=== PATIENT | female | born 1995 | race Two or more races ===

== ENCOUNTER 2022-02-19 10:52 | Emergency (ER) | payer MEDICAID ==
[~2022-02-19] VITALS: Ht 162.6 cm; Wt 84.1 kg
[~2022-02-19 10:52] MED LIST: PREN-125 PO
[2022-02-19] MEDS ORDERED: SODIUM CHLORIDE 0.9% 1,000 ML IVB ONE (11:30)
[2022-02-19] MEDS ORDERED: PROCHLORPERAZINE EDISYLATE 5 MG/ML 2ML VIAL IV ONE (11:30)
[2022-02-19 11:51] LABS: Basophils # (auto) 0 10 ^3/uL (0-0.2); Basophils % (auto) 0.4 % (0.0-2.0); Eosinophils # (auto) 0 10 ^3/uL (0-0.8); Eosinophils % (auto) 0.3 % (0.0-7.0); Hematocrit 41.6 % (36.0-46.0); Hemoglobin 13.9 g/dL (12.2-16.2); Lymphocytes # (auto) 1.8 10 ^3/uL (0.4-5.4); Lymphocytes % (auto) 19.5 % (10.0-50.0); Mean Corpuscular Hemoglobin 29.6 pg (28.0-32.0); Mean Corpuscular Hgb Conc. 33.5 g/dL (32.0-36.0); Mean Corpuscular Volume 88.4 fL (80.0-100.0); Monocytes # (auto) 0.9 10 ^3/uL (0-1.3); Monocytes % (auto) 9.5 % (0.0-12.0); Neutrophils # (auto) 6.5 10 ^3/uL (1.6-8.6); Neutrophils % (auto) 70.3 % (37.0-80.0); Red Blood Cells 4.71 10^6/uL (4.0-5.20); Red Cell Distribution Width 12.7 % (11.8-14.3); White Blood Cell 9.3 10^3/uL (4.4-10.8)
[2022-02-19 12:12] LABS: Albumin 4.1 g/dL (3.4-5.0); BUN/Creatinine Ratio 13.2; Calcium 9.3 mg/dL (8.5-10.1)
[2022-02-19 12:15] LABS: Bilirubin, Total 0.6 mg/dL (0.2-1.0); Total Protein 8.3 g/dL (6.4-8.2)
[2022-02-19 14:13] LABS: Urine Specific Gravity 1.004 (1.001-1.035)
[2022-02-19 14:14] LABS: Urine Blood Negative /uL (Negative)
[2022-02-19] MEDS ORDERED: ONDA-144 PO (14:20)
[2022-02-19 16:19] VITALS: BP 114/77
[2022-02-19 20:28] LABS: Urine Bacteria NONE SEEN /hpf (None Seen); Urine WBC NONE SEEN /hpf (0 - 5)
== END 2022-02-19 16:20 | disposition home or self-care (01) ==
LOC: ER 10:52
DX: B34.9 Viral infection, unspecified (principal); F12.188 Cannabis abuse with other cannabis-induced disorder; R42 Dizziness and giddiness; Z32.02 Encounter for pregnancy test, result negative
CPT/HCPCS: 36415; 80053; 81001; 81025; 85025; 96361; 96374; 99283; J0780; J7030

== ENCOUNTER 2022-09-25 14:01 | Emergency (ER) | payer MEDICAID ==
[~2022-09-25] VITALS: Ht 162.6 cm; Wt 72.3 kg
[~2022-09-25 14:01] MED LIST changes: +ONDA-144 PO
[2022-09-25 14:13] VITALS: BP 117/68
[2022-09-25] MEDS ORDERED: IBUPROFEN 600 MG TAB PO ONE (15:45)
[2022-09-25] MEDS ORDERED: IBUP1TAB5 PO (16:18)
== END 2022-09-25 16:25 | disposition home or self-care (01) ==
LOC: ER 14:01
DX: S46.911A Strain of unspecified muscle, fascia and tendon at shoulder and upper arm level, right arm, initial encounter (principal); F12.10 Cannabis abuse, uncomplicated; X50.0XXA Overexertion from strenuous movement or load, initial encounter; Y93.89 Activity, other specified; Y92.89 Other specified places as the place of occurrence of the external cause; Y99.8 Other external cause status
CPT/HCPCS: 73030

== ENCOUNTER 2022-11-02 22:34 | Emergency (ER) | payer SELFPAY ==
[~2022-11-02] VITALS: Ht 162.6 cm; Wt 69.5 kg
[~2022-11-02 22:34] MED LIST changes: +IBUP1TAB5 PO
[2022-11-03 00:25] VITALS: BP 97/47; PULSE 59; RESP 20; TEMP 97.6; O2SAT 97
[2022-11-03] MEDS ORDERED: DIPH25TA54 PO (00:28)
[2022-11-03] MEDS ORDERED: DOXY-286 PO (00:28)
[2022-11-03] MEDS ORDERED: PRED20TA2 PO (00:28)
[2022-11-03] MEDS ORDERED: diphenhdrAMINE HCL 25 MG CAP PO ONE (00:30)
[2022-11-03] MEDS ORDERED: DexAMETHasone SOD PHOS 10MG/1ML VIAL INJ IM ONE (00:30)
[2022-11-03] MEDS ORDERED: FAMOTIDINE 20 MG TAB PO ONE (00:30)
== END 2022-11-03 03:43 | disposition home or self-care (01) ==
LOC: ER 22:34
DX: S00.86XA Insect bite (nonvenomous) of other part of head, initial encounter (principal); F15.90 Other stimulant use, unspecified, uncomplicated; Z98.890 Other specified postprocedural states; Z79.1 Long term (current) use of non-steroidal anti-inflammatories (NSAID); Z79.899 Other long term (current) drug therapy; W57.XXXA Bitten or stung by nonvenomous insect and other nonvenomous arthropods, initial encounter; Y93.89 Activity, other specified; Y92.89 Other specified places as the place of occurrence of the external cause; Y99.8 Other external cause status
CPT/HCPCS: 96372; 99283; J1100

== ENCOUNTER 2023-04-19 13:32 | Emergency (ER) | payer SELFPAY ==
[~2023-04-19] VITALS: Ht 160 cm; Wt 70.9 kg
[~2023-04-19 13:32] MED LIST changes: +DIPH25TA54 PO; +DOXY-286 PO; +PRED20TA2 PO
[2023-04-19] MEDS ORDERED: KETOROLAC TROMETH 60MG/2ML VIAL IM ONE (15:00)
[2023-04-19 15:13] LABS: Urine Bacteria MANY /hpf (None Seen); Urine Blood Negative /uL (Negative); Urine Clarity HAZY (Clear); Urine Color Colorless (Yellow); Urine Protein, UAD TRACE (Negative); Urine Specific Gravity 1.008 (1.001-1.035); Urine Urobilinogen Normal (Negative); Urine WBC 6 /hpf (0 - 5); Urine pH 5.5 (5.0-8.0)
[2023-04-19 15:50] VITALS: BP 114/50; PULSE 60; RESP 17; TEMP 98.2; O2SAT 98
[2023-04-19] MEDS ORDERED: IBUP1TAB5 PO (16:20)
[2023-04-19] MEDS ORDERED: ACET500T58 PO (16:20)
== END 2023-04-19 16:27 | disposition home or self-care (01) ==
LOC: ER 13:32
DX: S16.1XXA Strain of muscle, fascia and tendon at neck level, initial encounter (principal); S39.012A Strain of muscle, fascia and tendon of lower back, initial encounter; S20.211A Contusion of right front wall of thorax, initial encounter; F15.90 Other stimulant use, unspecified, uncomplicated; Z98.890 Other specified postprocedural states; Z79.899 Other long term (current) drug therapy; V89.2XXA Person injured in unspecified motor-vehicle accident, traffic, initial encounter; Y93.89 Activity, other specified; Y92.89 Other specified places as the place of occurrence of the external cause; Y99.8 Other external cause status
CPT/HCPCS: 72040; 72100; 81001; 81025; 96372; 99284; J1885

== ENCOUNTER 2023-05-13 13:15 | Emergency (ER) | payer MEDICAID ==
[~2023-05-13 13:15] MED LIST changes: +ACET500T58 PO
[2023-05-13 14:35] VITALS: BP 109/42; PULSE 79; RESP 18; TEMP 98.1; O2SAT 99
[2023-05-13] MEDS ORDERED: MELO-335 PO (15:32)
[2023-05-13] MEDS ORDERED: CYCL-839 PO (15:32)
[2023-05-13] MEDS: KETOROLAC TROMETH 60MG/2ML VIAL IM ONE (15:47)
== END 2023-05-13 16:01 | disposition home or self-care (01) ==
LOC: ER 13:15
DX: S16.1XXA Strain of muscle, fascia and tendon at neck level, initial encounter (principal); F12.10 Cannabis abuse, uncomplicated; X58.XXXA Exposure to other specified factors, initial encounter; Y93.89 Activity, other specified; Y92.89 Other specified places as the place of occurrence of the external cause; Y99.8 Other external cause status
CPT/HCPCS: 96372; 99283; J1885

== ENCOUNTER 2024-04-18 18:47 | Emergency (ER) | payer MEDICAID ==
[~2024-04-18] VITALS: Ht 162.6 cm; Wt 72.8 kg
[~2024-04-18 18:47] MED LIST changes: +CYCL-839 PO; +MELO15TA29 PO
--- NOTE | 2024-04-18 18:59 | ED.PDOC ---
History of Present Illness HPI Comments 28 y/o F presents with c/o dizziness, but no headache for the past 3x days, today. Patient endorses on onset of symptoms, intermittently, whenever she turns her head in the morning for the past 3 days. She comments on dizziness being a room-spinning sensations. She endorses on no recent injuries, sick contact, or additional relevant information at time of assessment. however, she savanna have URI symptoms last week. She denies having any vision or speech changes, fever, chills, or other associated symptoms or modifiers at this time. Chief Complaint: Dizziness Time Seen by MD: 18:50 Primary Care Provider: NONE Reviewed Notes: Nurses Notes, Medications, Allergies Allergies: Coded Allergies: NO KNOWN ALLERGIES (Unverified , 05/26/16) Home Meds Active Scripts Meloxicam (Meloxicam) 15 Mg Tab, 1 TAB PO DAILY for 30 Days, #30 TAB 0 Refills Prov:LESLEE VILLALOBOS CHILDHOOD DEVELOPMENT TEACHER 05/13/23 Cyclobenzaprine Hcl (Cyclobenzaprine Hcl) 10 Mg Tab, 10 MG PO QHSP PRN for 30 Days, #30 TAB 0 Refills Prov:LESLEE VILLALOBOS CHILDHOOD DEVELOPMENT TEACHER 05/13/23 Acetaminophen (Acetaminophen) 500 Mg Tab, 500 MG PO Q4HP PRN, #30 TAB Prov:ZACARIAS LAGOS PAC 04/19/23 Ibuprofen Micronized (Ibuprofen) 600 Mg Tab, 600 MG PO Q6HP PRN, #30 TAB Prov:ZACARIAS LAGOS PAC 04/19/23 Doxycycline Hyclate (DOXYCYCLINE HYCLATE) 100 Mg Tab, 1 TAB PO BID for 10 Days, #20 TAB Prov:DAMIEN SABA CHILDHOOD DEVELOPMENT TEACHER 11/03/22 Prednisone (Prednisone) 20 Mg Tab, 1 TAB PO DAILY for 5 Days, #5 TAB start tomorrow with food Prov:DAMIEN SABA CHILDHOOD DEVELOPMENT TEACHER 11/03/22 Diphenhydramine Hcl (Benadryl Allergy) 25 Mg Tab, 1 TAB PO Q8HR, #20 TAB itching Prov:DAMIEN SABA Q CHILDHOOD DEVELOPMENT TEACHER 11/03/22 Ibuprofen Micronized (Ibuprofen) 600 Mg Tab, 600 MG PO Q6HPRN PRN for 5 Days, #20 TAB Prov:BOBBY UMANA CHILDHOOD DEVELOPMENT TEACHER 09/25/22 Ondansetron (Zofran) 4 Mg Tab, 1 TAB PO Q6HR, #20 TAB Prov:CHITO BARRETO MD 02/19/22 Reported Medications Vitamins W/ Ferrous S (CLINICAL NUTRIENTS PRENAT) Tab, 1 TAB PO DAILY, TAB 05/26/16 Information Source: Patient Mode of Arrival: Ambulatory Severity: Moderate Timing: Days Duration: Since onset Prehospital treatment: None Past Medical History PAST MEDICAL HISTORY: Denies 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 History: Denies all ICHTHYOLOGY TEACHER Hx Family History Family History: Reviewed,noncontributory to illness Social History Smoker: Non-Smoker Alcohol: Occasionally Drugs: Marijuana Lives In: Home Constitutional: denies: chills, diaphoresis, fatigue, fever, malaise, sweats, weakness, others EENTM: denies: blurred vision, double vision, ear bleeding, ear discharge, ear drainage, ear pain, ear ringing, eye pain, eye redness, hearing loss, mouth pain, mouth swelling, nasal discharge, nose bleeding, nose congestion, nose pain, photophobia, tearing, throat pain, throat swelling, voice changes, others Respiratory: denies: cough, hemoptysis, orthopnea, SOB at rest, shortness of breath, SOB with excertion, stridor, wheezing, others Cardiovascular: denies: chest pain, dizzy spells, diaphoresis, Dyspnea on exertion, edema, irregular heart beat, left arm pain, lightheadedness, palpitat ions, PND, syncope, others Gastrointestinal: denies: abdomen distended, abdominal pain, blood streaked bow els, constipated, diarrhea, dysphagia, difficulty swallowing, hematemesis, melena, nausea, poor appetite, poor fluid intake, rectal bleeding, rectal pain, vomiting, others Genitourinary: denies: abnormal vagina bleeding, burning, dyspareunia, dysuria, flank pain, frequency, hematuria, incontinence, pain, , vagina discharge, urgency, others Neurological: reports: dizziness; denies: fainting, headache, left sided numbness, left sided weakness, numbness, paresthesia, pre-existing deficit, right sided numbness, right sided weakness, seizure, speech problems, tingling, tremors, weakness, others Musculoskeletal: denies: back pain, gout, joint pain, joint swelling, muscle pain, muscle stiffness, neck pain, others Integumetry: denies: bruises, change in color, change in hair/nails, dryness, laceration, lesions, lumps, rash, wounds, others Allergic/Immunocompromised: denies: Difficulty Healing, Frequent Infections, Hives, Itching, others Hematologic/Lymphatic: denies: anemia, blood clots, easy bleeding, easy bruising, swollen glands, others Endocrine: denies: excessive hunger, excessive sweating, excessive thirst, excessive urination, flushing, intolerance to cold, intolerance to heat, unexplained weight gain, unexplained weight loss, others Psychiatric: denies: anxiety, bipolar disorder, depression, hopeless, panic di sorder, schizophrenia, sleepless, suicidal, others All Other Systems: Reviewed and Negative (negative unless otherwise stated above or in HPI) Physical Exam Exam Comments pt General Appearance: No Apparent Distress, Normal HEENT: Normal ENT Inspection, Pharynx Normal, TMs Normal, Other (pt has horizontal nystagmus, with fast phase to the left. HiNTS test negative. no ataxia) Neck: Full Range of Motion, Non-Tender, Normal, Normal Inspection Respiratory: Chest Non-Tender, Lungs Clear, No Accessory Muscle Use, No Respiratory Distress, Normal Breath Sounds Cardiovascular: No Edema, No JVD, No Murmur, No Gallop, Normal Peripheral Pulses, Regular Rate/Rhythm Breast Exam: Deferred Gastrointestinal: No Organomegaly, Non Tender, No Pulsatile Mass, Normal Bowel Sounds, Soft Genitalia: Deferred Pelvic: Deferred Rectal: Deferred Extremities: No calf tenderness, Normal capillary refill, Normal inspection, Normal range of motion, Non-tender, No pedal edema Musculoskeletal : Apperance: Normal Neurologic: Alert, cutter gas II-XII nml as Tested, No Motor Deficits, Normal Affect, Normal Mood, No Sensory Deficits, Other (fast phase to left no vertigo nystagmus normal gait no asymmetry, hints test negative, eye movement reproduces vertigo symptoms) Cerebellar Function: Normal Reflexes: Normal Skin: Dry, Normal Color, Warm Lymphatic: No Adenopathy Was a procedure done? Was a procedure done?: No Differential Dx Considerations may include: vertigo, dehydration, benefits officer mass, labyrinthitis, germaine's disease X-Ray, Labs, Meds, VS Vital Signs Date Time Temp Pulse Resp B/P (MAP) Pulse Ox O2 Delivery O2 Flow Rate FiO2 04/18/24 19:42 98.4 88 16 150/98 (115) 98 98.4 04/18/24 19:42 88 16 97 Room Air* 0 21 04/18/24 18:54 97.7 66 18 123/84 (97) 97 Current Medications Medications (Trade) Dose Ordered Sig/Hamzah Route Start Time Stop Time Status Last Admin Meclizine HCl (Antivert Tablet) 25 mg ONCE ONCE PO 04/18/24 19:00 04/18/24 19:01 DC 04/18/24 19:41 Alprazolam (Xanax Tablet) 0.25 mg ONCE ONCE PO 04/18/24 19:00 04/18/24 19:01 DC 04/18/24 19:41 Ondansetron HCl (Zofran Po) 4 mg ONCE ONCE PO 04/18/24 19:00 04/18/24 19:01 DC 04/18/24 19:41 Time of 1ST Reevaluation: 19:20 Reevaluation 1ST: Unchanged Time of 2ND Reevaluation: 20:05 Reevaluation 2ND: Resolved Patient Education/Counseling: Diagnosis, Treatment, Prognosis, Need For Follow Up Family Education/Counseling: No Family Present Additional Information I discussed treatment and results with medical personnel Departure 1 Departure Time of Disposition: 20:09 Impression: Primary Impression: Vertigo Disposition: 01 HOME / SELF CARE / HOMELESS Condition: Good e-Prescriptions Alprazolam (Xanax) 0.25 Mg Tb 1 TAB PO BID, #10 TAB Prov: VINCE BILLINGSLEY MD 04/18/24 Ondansetron Odt 4MG Tab (ZOFRAN PO) 4 Mg Tb 4 MG PO Q4HP PRN for 5 Days, #25 TAB ODT TAB-DISSOLVE IN MOUTH, THEN SWALLOW Prov: VINCE BILLINGSLEY MD 04/18/24 Meclizine HCl (Meclizine 25) 25 Mg Tab 25 MG PO Q4HP PRN for 5 Days, #25 TAB Prov: VINCE BILLINGSLEY MD 04/18/24 Discharged With: Self Critical Care Note Critical Care Time?: No Stability Stability form required: No Heart Score Heart Score: Heart Score Response (Comments) Value History N/A 0 EKG N/A 0 Age N/A 0 Risk Factors N/A 0 Troponin N/A 0 Total 0 I personally scribed for VINCE BILLINGSLEY MD [facility] on 04/18/24 at 18:59. Electronically submitted by Phill Overton ([email or web address]). VINCE BILLINGSLEY MD Apr 18, 2024 18:59
[2024-04-18] MEDS: ONDANSETRON ODT 4 MG TAB PO ONE (19:41)
[2024-04-18] MEDS: MECLIZINE HCL 25 MG TAB PO ONE (19:41)
[2024-04-18] MEDS: ALPRAZolam 0.25 MG TAB PO ONE (19:41)
[2024-04-18 19:42] VITALS: BP 150/98; PULSE 88; RESP 16; TEMP 98.4; O2SAT 97
[2024-04-18] MEDS ORDERED: ZOFR4T PO (20:06)
[2024-04-18] MEDS ORDERED: ALPR0.25 PO (20:06)
[2024-04-18] MEDS ORDERED: MECL1TAB42 PO (20:06)
== END 2024-04-18 20:19 | disposition home or self-care (01) ==
LOC: ER 18:47
DX: R42 Dizziness and giddiness (principal); Z98.890 Other specified postprocedural states
CPT/HCPCS: 99284; J8597; Q0162